=== PATIENT | male | born 1995 | race African-American/Black ===

== ENCOUNTER 2017-03-17 13:13 | Emergency (ER) | payer MEDICAID ==
[~2017-03-17] VITALS: Ht 180.3 cm; Wt 80.0 kg
[2017-03-17] MEDS ORDERED: ALBU18HF2 IH (13:34)
[2017-03-17 15:50] VITALS: BP 124/78
== END 2017-03-17 16:13 | disposition home or self-care (01) ==
LOC: ER 13:41
DX: M25.512 Pain in left shoulder (principal); M25.562 Pain in left knee; J45.909 Unspecified asthma, uncomplicated; V43.62XA Car passenger injured in collision with other type car in traffic accident, initial encounter; Y93.89 Activity, other specified; Y92.89 Other specified places as the place of occurrence of the external cause; Y99.8 Other external cause status
CPT/HCPCS: 71010; 73030; 73560; 99284